=== PATIENT | male | born 1970 | race Caucasian/White ===

== ENCOUNTER 2021-01-20 20:44 | Emergency (ER) | payer MEDICAID ==
[~2021-01-20] VITALS: Ht 182.9 cm; Wt 115.1 kg
[~2021-01-20 20:44] MED LIST: ISON300T10 PO; RIFA150T2 PO
--- NOTE | 2021-01-20 21:03 | NUR ---
ASSESSMENT MADE. PA AT BEDSIDE. C/O OFF BALANCE WITH WALKING WITH VOMTING. HAD A GLF LAST THURSDAY. DRIED BLOOD NOTED ON PATIENT FOREHEAD. + N/V
--- NOTE | 2021-01-20 21:26 | NUR ---
patient to CT scan.
--- NOTE | 2021-01-20 22:03 | NUR ---
back from CT scan. awaiting result.
--- NOTE | 2021-01-20 22:06 | NUR ---
CT scan resulted. chart up for MD to re-eval.
[2021-01-20] MEDS ORDERED: MECLIZINE CHEWABLE 25 MG TAB ONE (22:13)
[2021-01-20] MEDS ORDERED: MECLIZINE CHEWABLE 25 MG TAB PO ONE (22:30)
[2021-01-20 22:48] VITALS: BP 129/73
--- NOTE | 2021-01-20 22:48 | NUR ---
re-evaluation done. patient discharged with prescription and instruction. verbalized understanding.
== END 2021-01-20 22:50 | disposition home or self-care (01) ==
LOC: ED 22:06
DX: S01.81XA Laceration without foreign body of other part of head, initial encounter (principal); S09.90XA Unspecified injury of head, initial encounter; R55 Syncope and collapse; R11.2 Nausea with vomiting, unspecified; W18.30XA Fall on same level, unspecified, initial encounter; Y93.89 Activity, other specified; Y92.410 Unspecified street and highway as the place of occurrence of the external cause; Y99.8 Other external cause status
CPT/HCPCS: 70450; 70486; 99285

== ENCOUNTER 2021-01-28 11:44 | Emergency (ER) | payer MEDICAID ==
[~2021-01-28] VITALS: Ht 182.9 cm; Wt 116.8 kg
--- NOTE | 2021-01-28 12:03 | NUR ---
PT AMBULATORY TO ROOM FROM TRIAGE, PT CHANGED INTO GOWN. MONITORS IN PLACE. CALL LIGHT WITHIN REACH. PT STATES HE FEEL DIZZY UPON STANDING, DENIES CP/SOB
--- NOTE | 2021-01-28 12:36 | NUR ---
PA AT BS
[2021-01-28 12:42] VITALS: BP 138/79
--- NOTE | 2021-01-28 12:42 | NUR ---
Patient given discharge instructions and they have confirmed that they understand the instructions. Patient ambulatory with steady gait.
== END 2021-01-28 12:45 | disposition home or self-care (01) ==
LOC: ED 12:35
DX: S06.0X0A Concussion without loss of consciousness, initial encounter (principal); W18.30XA Fall on same level, unspecified, initial encounter; Y93.89 Activity, other specified; Y92.89 Other specified places as the place of occurrence of the external cause; Y99.8 Other external cause status
CPT/HCPCS: 99282